=== PATIENT | female | born 1950 | race Caucasian/White ===

== ENCOUNTER 2021-12-08 20:23 | Inpatient (IN) | payer OTHER ==
[2021-12-09 00:02] LABS: BASO % 0.5 % (0-2.0); HEMATOCRIT 38.4 % (32.4-45.2); HEMOGLOBIN 12.9 GM/dL (10.7-15.3); MCH 32.8 pg (25.7-33.7); MCHC 33.7 g/dl (32.0-36.0); MEAN CELL VOLUME 97.4 fl (80-96); MEAN PLT VOLUME 6.9 fl (7.5-11.1); MONO % 6.3 % (3.8-10.2); NEUT % 70.2 % (42.8-82.8); PLATELET COUNT 216 10^3/uL (134-434); RBC 3.95 M/mm3 (3.60-5.2); RDW 13.5 % (11.6-15.6)
[2021-12-09 00:19] LABS: CALCIUM 8.7 mg/dL (8.5-10.1)
[2021-12-09 00:20] LABS: ALBUMIN 3.2 g/dl (3.4-5.0); BLOOD UREA NITROGEN 20.9 mg/dL (7-18)
[2021-12-09 00:23] LABS: CREATININE 0.5 mg/dL (0.55-1.3)
[2021-12-09 00:25] LABS: BILIRUBIN,TOTAL 0.2 mg/dL (0.2-1)
[2021-12-09] MEDS ORDERED: oxyCODONE HCL 5 MG TABLET PO PRN (07:29)
[2021-12-09] MEDS ORDERED: ACETAMINOPHEN 325 MG TABLET (FP) PO PRN (07:30)
[2021-12-09 08:24] VITALS: BMI 19.5
[2021-12-09 09:08] LABS: BASO % 0.5 % (0-2.0); EOS % 3.6 % (0-4.5); HEMATOCRIT 39.3 % (32.4-45.2); LYMPH % 16.6 % (8-40); MCH 32.4 pg (25.7-33.7); MCHC 33.2 g/dl (32.0-36.0); MEAN CELL VOLUME 97.6 fl (80-96); MEAN PLT VOLUME 6.8 fl (7.5-11.1); MONO % 5.7 % (3.8-10.2); NEUT % 73.6 % (42.8-82.8); PLATELET COUNT 217 10^3/uL (134-434); RBC 4.02 M/mm3 (3.60-5.2); RDW 13.6 % (11.6-15.6)
[2021-12-09 09:34] LABS: CALCIUM 8.7 mg/dL (8.5-10.1)
[2021-12-09 09:36] LABS: CREATININE 0.3 mg/dL (0.55-1.3)
[2021-12-09] MEDS: PHENobarbital 30 MG TABLET PO SCH ×2 (09:50→21:16)
[2021-12-09] MEDS: carBAMazepine XR 200 MG TAB.ER.12H PO SCH ×2 (09:52→21:17)
[2021-12-10] MEDS: carBAMazepine XR 200 MG TAB.ER.12H PO SCH ×2 (10:13→21:31)
[2021-12-10] MEDS: PHENobarbital 30 MG TABLET PO SCH ×2 (10:13→21:33)
[2021-12-11] MEDS: PHENobarbital 30 MG TABLET PO SCH ×2 (09:41→21:36)
[2021-12-11] MEDS: carBAMazepine XR 200 MG TAB.ER.12H PO SCH ×2 (09:45→21:36)
[2021-12-12] MEDS: carBAMazepine XR 200 MG TAB.ER.12H PO SCH ×2 (10:26→21:28)
[2021-12-12] MEDS: ACETAMINOPHEN 325 MG TABLET (FP) PO PRN (10:26)
[2021-12-12] MEDS: PHENobarbital 30 MG TABLET PO SCH ×2 (10:26→21:27)
[2021-12-13] MEDS: carBAMazepine XR 200 MG TAB.ER.12H PO SCH ×2 (09:11→21:11)
[2021-12-13] MEDS: ACETAMINOPHEN 325 MG TABLET (FP) PO PRN (09:11)
[2021-12-13] MEDS: PHENobarbital 30 MG TABLET PO SCH ×2 (09:11→21:11)
[2021-12-14] MEDS: PHENobarbital 30 MG TABLET PO SCH ×2 (09:10→21:04)
[2021-12-14] MEDS: carBAMazepine XR 200 MG TAB.ER.12H PO SCH ×2 (09:11→21:05)
[2021-12-15] MEDS: PHENobarbital 30 MG TABLET PO SCH (10:45)
[2021-12-15] MEDS: carBAMazepine XR 200 MG TAB.ER.12H PO SCH (10:47)
[2021-12-15 12:36] VITALS: RESP 17
[2021-12-15 12:39] VITALS: BP 146/63; PULSE 88
[2021-12-15 12:40] VITALS: TEMP 99.3
== END 2021-12-15 12:40 | DRG 563 ==
LOC: JER 20:23 → JERBED 23:24 → OBSVTOIN 12-09 01:46 → J6S 12-09 02:40
PROVIDERS: ADMIT Internal Medicine; ATTEND Internal Medicine
DX: S82.831A Other fracture of upper and lower end of right fibula, initial encounter for closed fracture (principal); G40.909 Epilepsy, unspecified, not intractable, without status epilepticus; W01.0XXA Fall on same level from slipping, tripping and stumbling without subsequent striking against object, initial encounter; Y92.098 Other place in other non-institutional residence as the place of occurrence of the external cause
CPT/HCPCS: 36415; 73610-TC-RT-FY; 73630-TC-RT-FY; 80048; 80053; 80156; 80184; 85025; 93005; 93010; 97116-GP; 99285-25; C9803-CS; G0378; U0003; U0005

== ENCOUNTER 2023-01-09 20:32 | Inpatient (IN) | payer OTHER ==
[2023-01-09 20:48] VITALS: BMI 23.4
[2023-01-09 23:54] LABS: BASO % 0.5 % (0-2.0); EOS % 1.5 % (0-4.5); HEMOGLOBIN 13.9 GM/dL (10.7-15.3); LYMPH % 15.5 % (8-40); MCH 33.4 pg (25.7-33.7); MCHC 34.8 g/dl (32.0-36.0); MEAN CELL VOLUME 95.9 fl (80-96); MEAN PLT VOLUME 6.5 fl (7.5-11.1); MONO % 6.1 % (3.8-10.2); NEUT % 76.4 % (42.8-82.8); PLATELET COUNT 215 10^3/uL (134-434); RBC 4.17 M/mm3 (3.60-5.2); RDW 13.4 % (11.6-15.6)
[2023-01-10 00:13] LABS: POTASSIUM 4.1 mmol/L (3.5-5.1)
[2023-01-10 00:14] LABS: CALCIUM 8.8 mg/dL (8.5-10.1)
[2023-01-10 00:15] LABS: ALBUMIN 3.6 g/dl (3.4-5.0); BLOOD UREA NITROGEN 20.7 mg/dL (7-18)
[2023-01-10 00:18] LABS: CREATININE 0.6 mg/dL (0.55-1.3)
[2023-01-10 00:19] LABS: TOT PROT 6.5 g/dl (6.4-8.2)
[2023-01-10 00:20] LABS: BILIRUBIN,TOTAL 0.3 mg/dL (0.2-1)
[2023-01-10] MEDS ORDERED: ACETAMINOPHEN 325 MG TABLET (FP) PO PRN (04:27)
[2023-01-10] MEDS: PHENobarbital 30 MG TABLET PO SCH (07:14)
[2023-01-10] MEDS: carBAMazepine 100 MG/5 ML UNIT-DOSE CUP PO SCH ×3 (07:42→21:36)
[2023-01-10] MEDS: NAPROXEN 250 MG TABLET PO SCH ×2 (09:59→21:34)
[2023-01-10] MEDS ORDERED: PHENobarbital 30 MG TABLET PO SCH (10:00)
[2023-01-10 13:23] LABS: URIC ACID 2.7 mg/dL (2.6-7.2)
[2023-01-11] MEDS: carBAMazepine 100 MG/5 ML UNIT-DOSE CUP PO SCH ×3 (06:56→22:45)
[2023-01-11] MEDS: PHENobarbital 30 MG TABLET PO SCH (06:56)
[2023-01-11 09:12] LABS: BASO % 0.8 % (0-2.0); EOS % 4.7 % (0-4.5); HEMATOCRIT 36.8 % (32.4-45.2); HEMOGLOBIN 12.5 GM/dL (10.7-15.3); MEAN CELL VOLUME 97.2 fl (80-96); NEUT % 62.5 % (42.8-82.8); PLATELET COUNT 184 10^3/uL (134-434); RBC 3.79 M/mm3 (3.60-5.2); RDW 13.4 % (11.6-15.6); WHITE BLOOD COUNT 4.4 K/mm3 (4.0-10.0)
[2023-01-11] MEDS: NAPROXEN 250 MG TABLET PO SCH ×2 (09:36→22:45)
[2023-01-11 09:48] LABS: POTASSIUM 4.4 mmol/L (3.5-5.1)
[2023-01-11 10:10] LABS: CALCIUM 8.5 mg/dL (8.5-10.1)
[2023-01-11 10:11] LABS: ALBUMIN 3.2 g/dl (3.4-5.0); BLOOD UREA NITROGEN 19.7 mg/dL (7-18)
[2023-01-11 10:14] LABS: CREATININE 0.3 mg/dL (0.55-1.3)
[2023-01-11 10:15] LABS: BILIRUBIN,TOTAL 0.4 mg/dL (0.2-1); TOT PROT 5.7 g/dl (6.4-8.2)
[2023-01-12] MEDS: PHENobarbital 30 MG TABLET PO SCH (06:54)
[2023-01-12] MEDS: carBAMazepine 100 MG/5 ML UNIT-DOSE CUP PO SCH ×3 (08:47→21:32)
[2023-01-12] MEDS: NAPROXEN 250 MG TABLET PO SCH ×2 (10:02→21:31)
[2023-01-13] MEDS: carBAMazepine 100 MG/5 ML UNIT-DOSE CUP PO SCH ×3 (06:10→21:31)
[2023-01-13] MEDS: PHENobarbital 30 MG TABLET PO SCH (06:10)
[2023-01-13] MEDS: NAPROXEN 250 MG TABLET PO SCH ×2 (10:26→21:31)
[2023-01-14] MEDS: PHENobarbital 30 MG TABLET PO SCH (06:24)
[2023-01-14] MEDS: carBAMazepine 100 MG/5 ML UNIT-DOSE CUP PO SCH ×3 (06:24→22:21)
[2023-01-14 08:47] LABS: BASO % 0.8 % (0-2.0); EOS % 6.4 % (0-4.5); HEMATOCRIT 34.9 % (32.4-45.2); HEMOGLOBIN 12.2 GM/dL (10.7-15.3); LYMPH % 23.9 % (8-40); MCH 33.4 pg (25.7-33.7); MCHC 34.9 g/dl (32.0-36.0); MEAN CELL VOLUME 95.7 fl (80-96); MEAN PLT VOLUME 6.9 fl (7.5-11.1); MONO % 9.4 % (3.8-10.2); NEUT % 59.5 % (42.8-82.8); PLATELET COUNT 184 10^3/uL (134-434); RBC 3.65 M/mm3 (3.60-5.2); RDW 13.3 % (11.6-15.6); WHITE BLOOD COUNT 3.8 K/mm3 (4.0-10.0)
[2023-01-14 09:45] LABS: POTASSIUM 4.3 mmol/L (3.5-5.1)
[2023-01-14 09:54] LABS: BLOOD UREA NITROGEN 19.8 mg/dL (7-18)
[2023-01-14 09:58] LABS: CALCIUM 8.4 mg/dL (8.5-10.1)
[2023-01-14 10:00] LABS: CREATININE 0.3 mg/dL (0.55-1.3)
[2023-01-14] MEDS: NAPROXEN 250 MG TABLET PO SCH ×2 (10:46→22:21)
[2023-01-15] MEDS: carBAMazepine 100 MG/5 ML UNIT-DOSE CUP PO SCH ×2 (06:28→13:29)
[2023-01-15] MEDS: PHENobarbital 30 MG TABLET PO SCH (06:29)
[2023-01-15 08:55] VITALS: TEMP 98
[2023-01-15] MEDS: NAPROXEN 250 MG TABLET PO SCH (09:48)
[2023-01-15 13:47] VITALS: BP 119/58; PULSE 75; RESP 20
== END 2023-01-15 16:35 | DRG 914 ==
LOC: JER 20:32 → JERBED 23:12 → J7W 01-10 06:15 → OBSVTOIN 01-11 13:58
PROVIDERS: ADMIT Internal Medicine; ATTEND Internal Medicine
DX: S99.811A Other specified injuries of right ankle, initial encounter (principal); G40.909 Epilepsy, unspecified, not intractable, without status epilepticus; R26.2 Difficulty in walking, not elsewhere classified; M85.88 Other specified disorders of bone density and structure, other site; F88 Other disorders of psychological development; W18.39XA Other fall on same level, initial encounter; Y92.098 Other place in other non-institutional residence as the place of occurrence of the external cause
CPT/HCPCS: 36415; 70450-TC; 73610-TC-RT-FY; 73630-TC-RT-FY; 80048; 80053; 80156; 84550; 85025; 85651; 85730; 86140; 87635; 93005; 93010; 97116-GP; 97161-GP; 99285-25; G0378